=== PATIENT | female | born 1995 | race Caucasian/White ===

== ENCOUNTER 2016-10-24 09:23 | Observation (INO) | payer BC ==
[~2016-10-24 09:23] MED LIST: ALEVE220 M1 PO; PRENA1 CHEW TA1.4 M1 PO; TYLENOL #31 TA1 PO; TYLENOL EXTRA500 M1 PO; TYLENOL325 M2 PO; VISTARIL25 M1 PO; ZITHROMAX250MG Z-PAK PO
== END 2016-10-24 10:55 ==
LOC: LDR 09:23
PROVIDERS: ADMIT Obstetrics & Gynecology
DX: O13.3 Gestational [pregnancy-induced] hypertension without significant proteinuria, third trimester (principal); Z3A.36 36 weeks gestation of pregnancy; Z98.890 Other specified postprocedural states

== ENCOUNTER 2016-11-05 15:08 | Inpatient (IN) | payer BC ==
[2016-11-05] MEDS ORDERED: ZANTAC 7575 M1 PO (15:31)
[2016-11-05 16:50] LABS: BASO % 0.1 % (0-2); EOS % 0.1 % (0-7); HCT-HEMATOCRIT 39.4 % (34.0-49.0); HGB-HEMOGLOBIN 13.5 gm/dl (12.0-15.5); IMMATURE GRANULOCYTES ABSOLUTE 0.02 tho/cmm (0-0.03); IMMATURE GRANULOCYTES PERCENT 0.3 % (0-0.3); LYMPH % 17.6 % (20-45); LYMPH ABSOLUTE COUNT 1.3 tho/cmm (0.8-4.5); MCH (MEAN CORPUSCULAR HGB) 29.9 pg (28.0-32.0); MCHC MEAN CORPUSCULAR HGB CONC 34.3 % (32.0-36.0); MCV (MEAN CELL VOLUME) 87.4 fl (82.0-96.0); MEAN PLATELET VOLUME 11.5 cmc (9.4-12.4); MONO % 4.6 % (0-12); MONOCYTE ABSOLUTE COUNT 0.3 tho/cmm (0.0-1.2); NEUTROPHIL ABSOLUTE COUNT 5.7 tho/cmm (1.6-8.0); NEUTROPHIL-AUTOMATED 5.7 tho/cmm (1.6-8.0); NEUTROPHILS % 77.3 % (40-80); PLATELET COUNT 212 tho/cmm (150-450); RED BLOOD COUNT 4.51 mil/cmm (4.00-5.20); RED CELL DISTRIBUTION WIDTH 13.6 % (12.4-16.4); WHITE BLOOD COUNT 7.4 tho/cmm (4.0-10.0)
[2016-11-05 17:52] LABS: ALB/GLOB RATIO 0.7 (0.8-2.0); ALBUMIN 2.8 g/dl (3.5-5.0); ALKALINE PHOSPHATASE 132 U/L (33-138); ALT/SGPT 30 U/L (12-78); ANION GAP 15 mmol/L (0-20); AST/SGOT 30 U/L (10-40); BILIRUBIN,TOTAL 0.3 mg/dl (0-1.5); BLOOD UREA NITROGEN 11 mg/dl (6-24); CALCIUM 9.5 mg/dl (8.5-10.5); CARBON DIOXIDE-VENOUS 23 mmol/L (22-32); CHLORIDE 105 mmol/l (96-110); CREATININE 0.87 mg/dl (0.50-1.10); GLUCOSE 104 mg/dL (70-110); POTASSIUM 4.3 mmol/L (3.7-5.1); SODIUM 139 mmol/L (135-145); eGFR VALUE FOR BLACK >90 mL/Min
[2016-11-06 21:55] LABS: CORD BLOOD PH ARTERIAL 7.07 Units (7.18-7.38)
[2016-11-07 07:57] LABS: HGB-HEMOGLOBIN 12.5 gm/dl (12.0-15.5); IMMATURE GRANULOCYTES ABSOLUTE 0.07 tho/cmm (0-0.03); IMMATURE GRANULOCYTES PERCENT 0.3 % (0-0.3); LYMPH ABSOLUTE COUNT 1.1 tho/cmm (0.8-4.5); MCH (MEAN CORPUSCULAR HGB) 29.7 pg (28.0-32.0); MCHC MEAN CORPUSCULAR HGB CONC 33.8 % (32.0-36.0); MCV (MEAN CELL VOLUME) 87.9 fl (82.0-96.0); MEAN PLATELET VOLUME 11.9 cmc (9.4-12.4); MONO % 3.7 % (0-12); MONOCYTE ABSOLUTE COUNT 0.8 tho/cmm (0.0-1.2); NEUTROPHIL ABSOLUTE COUNT 19.7 tho/cmm (1.6-8.0); NEUTROPHIL-AUTOMATED 19.7 tho/cmm (1.6-8.0); PLATELET COUNT 195 tho/cmm (150-450); RED BLOOD COUNT 4.21 mil/cmm (4.00-5.20); RED CELL DISTRIBUTION WIDTH 13.7 % (12.4-16.4)
[2016-11-07 08:53] LABS: WHITE BLOOD COUNT 21.7 tho/cmm (4.0-10.0)
[2016-11-10] MEDS ORDERED: IBUPROFEN25 GM (09:54)
[2016-11-10] MEDS ORDERED: IBUPROFEN800 M1 PO (09:55)
[2016-11-10] MEDS ORDERED: PERCOCET 5-3251 EACH PO (09:56)
[2016-11-10] MEDS ORDERED: COLACE100 M1 PO (10:02)
== END 2016-11-10 14:10 | DRG 766 ==
LOC: LDR 15:08 → OBGD 11-06 23:26
PROVIDERS: ADMIT Obstetrics & Gynecology
PROC: 3E0P7GC Introduction of Other Therapeutic Substance into Female Reproductive, Via Natural or Artificial Opening (ICD-10-PCS; 2016-11-05)
PROC: 10D00Z1 Extraction of Products of Conception, Low, Open Approach (ICD-10-PCS; principal; 2016-11-06)
PROC: 10907ZC Drainage of Amniotic Fluid, Therapeutic from Products of Conception, Via Natural or Artificial Opening (ICD-10-PCS; 2016-11-06)
PROC: 10H07YZ Insertion of Other Device into Products of Conception, Via Natural or Artificial Opening (ICD-10-PCS; 2016-11-06)
PROC: 4A1H7CZ Monitoring of Products of Conception, Cardiac Rate, Via Natural or Artificial Opening (ICD-10-PCS; 2016-11-06)
DX: O13.4 Gestational [pregnancy-induced] hypertension without significant proteinuria, complicating childbirth (principal); O76 Abnormality in fetal heart rate and rhythm complicating labor and delivery; Z3A.38 38 weeks gestation of pregnancy; Z37.0 Single live birth; O69.81X0 Labor and delivery complicated by cord around neck, without compression, not applicable or unspecified
CPT/HCPCS: J0690; J2405; J2590; J3010; J7121